=== PATIENT | male | born 1995 | race Caucasian/White ===

== ENCOUNTER 2018-03-19 09:30 | Emergency (ER) | payer BC ==
[2018-03-19 09:51] VITALS: BP 126/81
--- NOTE | 2018-03-19 10:52 | UC ---
Skin Complaint HPI - HPI Summary HPI Summary: Pt c/o bilateral, great toe, ingrown nails. c/o worsening erythema, tenderness , slight edema. - History of Current Complaint Chief Complaint: UCSkin Time Seen by Provider: 03/19/18 09:59 Stated Complaint: JASON FOOT PAIN Hx Obtained From: Patient Onset/Duration: Gradual Onset, Lasting Days, Still Present, Worse Since - onset Skin Exposure Onset/Duration: Days Ago Timing: Constant Onset Severity: Mild Current Severity: Moderate Pain Intensity: 3 Pain Scale Used: 0-10 Numeric Location: Discrete - bilateral great toes Character: Swelling, Pain, Redness Aggravating Factor(s): Touch Alleviating Factor(s): Nothing Associated Signs & Symptoms: Positive: Drainage, Tenderness - Allergy/Home Medications Allergies/Adverse Reactions: Allergies Allergy/AdvReac Type Severity Reaction Status Date / Time No Known Allergies Allergy Verified 03/19/18 09:46 Home Medications: Home Medications Sertraline* [Zoloft*] 75 mg PO DAILY 03/19/18 [History Confirmed 03/19/18] Review of Systems Constitutional: Negative Skin: Other - erythema, swelling, drainage, Eyes: Negative ENT: Negative Respiratory: Negative Cardiovascular: Negative Gastrointestinal: Negative Genitourinary: Negative Motor: Negative Neurovascular: Negative Musculoskeletal: Edema - bilateral great toes, lateral edges of nail beds Neurological: Negative Psychological: Negative Is Patient Immunocompromised?: No All Other Systems Reviewed And Are Negative: Yes PMH/Surg Hx/FS Hx/Imm Hx Previously Healthy: Yes - Surgical History Surgical History: None - Family History Known Family History: Positive: Cardiac Disease - Social History Occupation: Student Lives: Dormitory/Roommates Alcohol Use: Occasionally Substance Use Type: None Smoking Status (MU): Never Smoked Tobacco Have You Smoked in the Last Year: No Physical Exam Triage Information Reviewed: Yes Appearance: Well-Appearing Vital Signs: Initial Vital Signs Temp 98.8 F 03/19/18 09:47 Pulse 71 03/19/18 09:47 Resp 18 03/19/18 09:47 BP 126/81 03/19/18 09:47 Pulse Ox 98 03/19/18 09:47 Vital Signs Reviewed: Yes Eye Exam: Normal ENT Exam: Normal Dental Exam: Normal Neck exam: Normal Respiratory Exam: Normal Musculoskeletal: Positive: Edema @ - bilateral great toes, lateral aspect of nail beds Neurological Exam: Normal Psychological Exam: Normal Skin Exam: Other - ingrown nails, withmild erythema and yellow serous drainage at lateral aspects of nail beds Course/Dx - Differential Diagnoses - Skin Complaint Differential Diagnoses: Other - ingrown nails bialteral feet, - Diagnoses Provider Diagnoses: ingrown nails, bialteral feet (great toes). wound infection bilateral feet (great toes) Discharge - Sign-Out/Discharge Documenting (check all that apply): Discharge/Admit/Transfer - Discharge Plan Condition: Stable Disposition: HOME Prescriptions: Cephalexin CAP* [Keflex 500 CAP*] 500 mg PO Q8H #21 cap Patient Education Materials: Ingrown Nail (ED) Referrals: Roman Martinez DPM [Doctor of Podiatric Medicine] - Tin Vogt DPM [Doctor of Podiatric Medicine] - Non Staff,Doctor [Primary Care Provider] - Additional Instructions: Please follow up with your PCP or return to clinic as needed. We have provided two names of podiatrists. there are many more to choose from, please follow up as soon as possible. with one. - Billing Disposition and Condition Condition: STABLE Disposition: Home
== END 2018-03-19 10:42 | disposition home or self-care (01) ==
LOC: UCCORT 09:30
DX: L03.032 Cellulitis of left toe (principal); L03.031 Cellulitis of right toe; L60.0 Ingrowing nail; M79.672 Pain in left foot; M79.671 Pain in right foot
CPT/HCPCS: 99202; G0463

== ENCOUNTER 2019-05-13 13:55 | Emergency (ER) | payer SELFPAY ==
[2019-05-13 14:06] VITALS: BP 138/73
--- NOTE | 2019-05-13 14:18 | UC ---
UC General HPI - HPI Summary HPI Summary: 24-year-old male comes in with a chief complaint of 3 days of fevers chills body aches and joint aches. 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 He's concerned he has Lyme disease. Also has a mild headache. No complaint of stiff neck. No abdominal pain. No dysuria. He did have one episode of diarrhea last evening. - History of Current Complaint Chief Complaint: UCGeneralIllness Stated Complaint: POSS.LYME Time Seen by Provider: 05/13/19 14:00 Pain Intensity: 2 - Allergy/Home Medications Allergies/Adverse Reactions: Allergies Allergy/AdvReac Type Severity Reaction Status Date / Time No Known Allergies Allergy Verified 05/13/19 14:03 Home Medications: Home Medications Sertraline* [Zoloft*] 150 mg PO DAILY 05/13/19 [History Confirmed 05/13/19] PMH/Surg Hx/FS Hx/Imm Hx Previously Healthy: Yes - Surgical History Surgical History: Yes Surgery Procedure, Year, and Place: Left Knee Arthroscopy, ~2012, [place] - Family History Known Family History: Positive: Cardiac Disease - Social History Alcohol Use: Occasionally Substance Use Type: None Smoking Status (MU): Never Smoked Tobacco Have You Smoked in the Last Year: No Review of Systems All Other Systems Reviewed And Are Negative: Yes Constitutional: Positive: Fever, Chills, Other - SEE HPI Skin: Positive: Negative Eyes: Positive: Negative ENT: Positive: Negative Respiratory: Positive: Negative Cardiovascular: Positive: Negative Gastrointestinal: Positive: Negative Genitourinary: Positive: Negative Motor: Positive: Negative Neurovascular: Positive: Negative Musculoskeletal: Positive: Arthralgia, Myalgia Neurological: Positive: Headache Psychological: Positive: Negative Is Patient Immunocompromised?: No Physical Exam Triage Information Reviewed: Yes Appearance: Well-Appearing, No Pain Distress, Well-Nourished Vital Signs: Initial Vital Signs Temp 97.2 F 05/13/19 14:01 Pulse 80 05/13/19 14:01 Resp 20 05/13/19 14:01 BP 138/73 05/13/19 14:01 Pulse Ox 100 05/13/19 14:01 Vital Signs Reviewed: Yes Eye Exam: Normal Eyes: Positive: Conjunctiva Clear ENT: Positive: Pharynx normal, TMs normal Neck: Positive: Supple Respiratory: Positive: Lungs clear, Normal breath sounds, No respiratory distress Cardiovascular: Positive: RRR Abdomen Description: Negative: CVA Tenderness (R), CVA Tenderness (L) Bowel Sounds: Positive: Present Musculoskeletal: Positive: Strength Intact, ROM Intact Neurological: Positive: Alert, Muscle Tone Normal Psychological: Positive: Age Appropriate Behavior Skin Exam: Normal Course/Dx - Course Course Of Treatment: The patient is concerned that he has Lyme disease. Has not seen any bull's-eye rash or any ticks attached to him. We discussed possible causes of fever chills body aches and arthralgias headache. At this time the patient prefers to be treated for Lyme disease. We discussed that testing at this early stage would unlikely be definitive and therefore not doing any lab work at this time. Discussed that if he gets worse she needs to get reevaluated right away. - Diagnoses Provider Diagnosis: Fever and chills, Myalgia, Arthralgia Discharge - Sign-Out/Discharge Documenting (check all that apply): Patient Departure All imaging exams completed and their final reports reviewed: No Studies - Discharge Plan Condition: Stable Disposition: HOME Prescriptions: DOXYcycline CAP(*) [DOXYcycline 100MG CAP(*)] 100 mg PO BID #28 cap Patient Education Materials: Lyme Disease (ED), Fever in Adults (ED), Arthralgia (ED) Referrals: [facility] [place] PHYSICIAN REFERRAL [Outside] Additional Instructions: FOLLOW UP WITH YOUR DOCTOR IF NOT COMPLETELY IMPROVED. GO TO THE EMERGENCY DEPARTMENT IF NOT IMPROVED WORSE OR ANY QUESTIONS OR CONCERNS. - Billing Disposition and Condition Condition: STABLE Disposition: Home
== END 2019-05-13 14:22 | disposition home or self-care (01) ==
LOC: UCCORT 13:55
DX: R50.9 Fever, unspecified (principal); M79.10 Myalgia, unspecified site; M25.50 Pain in unspecified joint
CPT/HCPCS: 99212; G0463